=== PATIENT | male | born 1960 | race Caucasian/White ===

== ENCOUNTER 2018-05-02 03:51 | Emergency (ER) | payer OTHER ==
[~2018-05-02 03:51] MED LIST: ALEVE220 MG PO; CENTRUM SILVER1 TA1 PO; FENOFIBRATE145 MG PO; GOOD SENSE IBU200 MG PO; IRBESARTAN150 MG PO; METFORMIN500 MG PO; METOPROLOL SUCC50 MG PO; TYLENOL XSTR500 MG PO
[2018-05-02 04:30] VITALS: BP 159/100
[2018-05-02] MEDS ORDERED: AMOXICILLIN250 M3 PO (04:30)
--- NOTE | 2018-05-02 04:30 | ED ANIMAL BITE/WOUND CHECK ---
History of Present Illness General Chief Complaint: Animal/Insect Bite Stated Complaint: PT C/C R EYE PAIN S/P "INSECT STING" Source: patient Exam Limitations: no limitations Vital Signs & Intake/Output Vital Signs & Intake/Output Vital Signs Date Time Temp Pulse Resp B/P B/P Pulse O2 O2 Flow FiO2 Mean Ox Delivery Rate 05/02 0430 97.2 84 20 159/100 97 Allergies Coded Allergies: NO KNOWN ALLERGIES (01/09/12) Reconcile Medications Acetaminophen (Tylenol Xstr) 500 MG TAB 1-2 TAB PO DAILY PRN BACK PAIN ( Reported) Amoxicillin 250 MG CAPSULE 1 CAP PO TID CELLULITIS FENOFIBRATE NANOCRYSTALLIZED (Fenofibrate) 145 MG TABLET 1 TAB PO QPM TRIGLYCERIDES (Reported) Ibuprofen 200 MG TABLET 1-2 TAB PO DAILY BACK PAIN (Reported) Irbesartan 150 MG TABLET 1 TAB PO QAM BP (Reported) METFORMIN HCL (Metformin) 500 MG TABLET 1 TAB PO QPM DIABETES (Reported) Metoprolol Succinate 50 MG TAB.ER.24H 1 TAB PO QAM HEART (Reported) Multivitamin, Minerals, and (Centrum Silver) 1 TAB TAB 1 TAB PO DAILY SUPPLEMENT (Reported) Naproxen Sodium (Aleve) 220 MG TABLET 1 TAB PO DAILY PRN BACK PAIN (Reported) Triage Note: PER PT BIT ABOVE RT EYE, ON TUESDAY UNKNOWN WHAT TYPE OF BUG CANNOT LOCATE STINGER ADVIL WITH SOME EFFECT REPORTS USING TRIAMICINOLONE CREAM WITH MINIMAL EFFECT NO VISUAL CHANGES SWELLING TO EYEBROW OF RT EYE NO REDNESS Triage Nurses Notes Reviewed? yes HPI: On Tuesday patient felt something sting him in his right eyebrow. Since then his eyebrow has been swollen. He has a slight tenderness when he palpates his eyebrow but there is no pain when he is not touching it. There is no radiation of pain. With palpation he rates the pain at 3 out of 10. Patient just feels that he is not getting any better so comes into the emergency department for evaluation. Past History Medical History Any Pertinent Medical History? none Surgical History Surgical History: non-contributory Psychosocial History What is your primary language Faroese Tobacco Use: Never used ETOH Use: occasional use Illicit Drug Use: denies illicit drug use Family History Hx Contributory? No Review of Systems Review of Systems Constitutional: Reports: no symptoms. EENTM: Reports: see HPI. Respiratory: Reports: no symptoms. Cardiovascular: Reports: no symptoms. Musculoskeletal: Reports: no symptoms. Neurological/Psychological: Reports: no symptoms. Immunologic/Allergic: Reports: no symptoms. Physical Exam Physical Exam General Appearance: well developed/nourished, alert, awake Head: RIGHR EYEBROW, SWOLLEN, ERYTHMEA Eyes: Bilateral: PERRL, EOMI. Neck: normal inspection, supple, full range of motion Neurologic/Psych: no motor/sensory deficits, awake, alert, oriented x 3, normal gait, normal mood/affect Lymphatic: no anterior cervical imelda Progress Differential Diagnosis: cellulitis Plan of Care: ABX Departure Departure Disposition: HOME OR SELF CARE Condition: Stable Clinical Impression Primary Impression: Cellulitis Referrals: Kali MARIANO,Chaim Gustafson (PCP/Family) Additional Instructions: TAKE AMOXIL PRESCRIBED RETURN IF SYMPTOMS WORSEN OR FOR ANY CONCERNS Departure Forms: Customer Survey General Discharge Information Prescriptions: Current Visit Scripts Amoxicillin 1 CAP PO TID #30 CAP
== END 2018-05-02 04:33 ==
LOC: ERH 03:51
DX: L03.211 Cellulitis of face (principal)